=== PATIENT | female | born 1980 | race African-American/Black ===

== ENCOUNTER 2017-09-04 19:50 | Emergency (ER) | payer OTHER ==
[~2017-09-04] VITALS: Ht 162.6 cm; Wt 62.5 kg
[2017-09-04 19:58] VITALS: Ht 162.6 cm; Wt 62.5 kg
--- NOTE | 2017-09-04 21:47 | ERD ---
ER Documentation Chief Complaint Chief Complaint cough x 3 days, chest wall pain, sob, left arm pain HPI This 37-year-old female resents to emergency department with complaint of chest pain, SOB, and cough, hx of anxiety, denies smoking, pt takes Елена Basal for anxiety, takes no prescribed medication. last PE this year in April, reports a vit D deficiency, on supplements ROS All systems reviewed and are negative except as per history of present illness. Medications Home Meds Active Scripts Inhaler, Assist Devices (E-Z SPACER) 1 Each Spacer, 1 EACH MC, #1 Prov:SKYLER,SERGIO 09/04/17 Benzonatate* (Tessalon Perle*) 100 Mg Capsule, 100 MG PO Q8H Y for COUGH for 7 Days, CAP Prov:SKYLER,SERGIO 09/04/17 Albuterol Sulfate* (Ventolin HFA*) 18 Gm Hfa.aer.ad, 2 PUFF INHALATION Q4H, #1 INHALER Prov:SKYLER,SERGIO 09/04/17 Allergies Allergies: Coded Allergies: ranitidine (Verified Allergy, Unknown, 09/04/17) PMhx/Soc Medical and Surgical Hx: pt denies Surgical Hx History of Surgery: No Hx Neurological Disorder: No Hx Respiratory Disorders: No Hx Cardiac Disorders: No Hx Psychiatric Problems: Yes (ANXIETY) Hx Miscellaneous Medical Probl: No Hx Alcohol Use: Yes Hx Substance Use: No Hx Tobacco Use: No Smoking Status: Never smoker Physical Exam Vitals Vital Signs Date Time Temp Pulse Resp B/P Pulse Ox O2 Delivery O2 Flow Rate FiO2 09/04/17 23:57 98.8 98 18 115/74 100 Room Air 09/04/17 22:27 87 20 97 21 09/04/17 19:58 98.3 97 20 135/78 100 Vitals stable, triage notes reviewed Physical Exam Const: Well-nourished, well-hydrated, well-appearing, anxious, 37-year-old female in no acute distress Head: Eyes: Normal Conjunctiva PERRLA, EOMI ENT: Tympanic membranes translucent, auditory canals clear, nasal mucosa moist, turbinates +1, no Crestor bleeding points noted.. Neck: Resp: Chest rises and falls symmetrically, wheezing with forced expiration, diminished bases Cardio: No chest wall tenderness, S1-S2, no S3-S4. Regular rate and rhythm, no murmurs Abd: Soft, non tender, non distended. No epigastric tenderness Skin: Back: Ext: No cyanosis, or edema Neur: Awake and alert Psych: Normal Mood and Affect Results 24 hrs Current Medications Medications (Trade) Dose Ordered Sig/Mare Route PRN Reason Start Time Stop Time Status Last Admin Dose Admin Albuterol (Proventil 0.083% (Neb)) 5 mg ONCE STAT NEB 09/04/17 21:48 09/04/17 21:53 DC 09/04/17 22:27 Procedures/MDM This 37-year-old female presents to emergency department for evaluation of cough , chest wall pain, shortness of breath when coughing, with history of anxiety. 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 Denies fever, chills, palpitations, dizziness patient is concerned about walking pneumonia teaching provided. Emergency room course includes history and physical exam, exam is negative for any chest consolidation I have suspicion for pneumonia. Sounds are diminished throughout posterior bases, albuterol hand-held nebulized treatment ordered. Post assessment patient is anxious, but improved respiratory effort, plan to discharge patient home with Cliff Joseph MDI with spacer and teaching by pharmacist. Follow-up with primary physician in 48 hours if symptoms fail to improve as anticipated. Patient is stable with no new complaints during ER course, clinically there is no current evidence to suggest meningitis, pneumonia, acute abdomen, acute coronary syndromes, pulmonary embolism or any other emergent condition appearing to require further evaluation or hospitalization. I feel the patient is stable for discharge at this time. I have discussed results, examination findings, the treatment plan with the patient and family present prior to discharge. Indications for emergent reevaluation, side effects of medication were also discussed. All questions were answered. Patient verbalizes understanding and agrees with plan of care. Departure Diagnosis: Primary Impression: Cough Condition: Good Patient Instructions: Cough, Chronic, Uncertain Cause, (Adult) Additional Instructions: Thank you for for coming to [facility] for your care today. Please ask your nurse or provider if you have questions about your care today and do not leave until all your questions have been answered. Please use any medications given as directed and follow-up with your doctor (or the doctor you were referred to) in the next 2-3 days. If you do not have a primary care doctor you may [place] [facility] [place] You may also use motrin and tylenol as needed for fever and/or pain unless instructed otherwise by your provider or nurse. Indications for more urgent follow-up have been discussed, but you may return to the Emergency Department at ANY time for any worrisome or worsening symptoms. If you have abdominal pain, please know that no test or exam you received is perfect and you should follow up within 8 hours for continued pain. If you had any imaging studies today, such as an X-Ray or CT Scan, these studies will be reviewed later by a radiologist. You will be called if there are important findings that were not identified today, so make sure the contact information you provided at registration is correct. If you received any narcotic pain control medicine today, such as Vicodin, Morphine or Dilaudid, your coordination and judgment may be affected for a number of hours. Please do not drive or operate heavy machinery, and you may want someone to assist you at home. If you were given a prescription for narcotic medication, be aware that it is very addictive- use sparingly and only if necessary. SERGIO HOLLAND Sep 04, 2017 21:47
[2017-09-04] MEDS ORDERED: ALBUTEROL 0.083% (NEB) 2.5 MG/3 ML AMP NEB STA (21:48)
[2017-09-04] MEDS ORDERED: BENZ100C70 PO (23:35)
[2017-09-04] MEDS ORDERED: ALBU18HF INHALATION (23:35)
[2017-09-04] MEDS ORDERED: INHA1SPA53 MC (23:36)
[2017-09-04 23:57] VITALS: BP 115/74; PULSE 98; RESP 18; TEMP 98.8
== END 2017-09-04 23:58 | disposition home or self-care (01) ==
LOC: FTE 19:50
DX: R05 Cough (principal)
CPT/HCPCS: 93005; 94664; Z7610

== ENCOUNTER 2019-07-04 14:12 | Emergency (ER) | payer OTHER ==
[~2019-07-04] VITALS: Ht 152.4 cm; Wt 69.0 kg
[~2019-07-04 14:12] MED LIST: ACET-141 PO; ALBU18HF INHALATION; BENZ-6 PO; IBUP-1561 PO; INHA1SPA53 MC
[2019-07-04 14:29] VITALS: BP 145/91; PULSE 92; RESP 18; Ht 152.4 cm; Wt 69.0 kg
== END 2019-07-04 18:01 | disposition home or self-care (01) ==
LOC: E/R 14:12
DX: R50.9 Fever, unspecified (principal)
CPT/HCPCS: 80053; 85025; Z7502; 99283